=== PATIENT | female | born 1955 | race American Indian/Alaskan Native ===

== ENCOUNTER 2021-02-15 13:31 | Outpatient (CLI) | payer BC, MEDICARE ==
--- NOTE | 2021-02-15 16:06 | XRay Report ---
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 FINDINGS: BONES AND JOINTS: No suspicious lucent or lytic lesion. No other acute abnormality. Mild degenerative changes are present throughout the spine. SOFT TISSUES: No acute abnormality. ADDITIONAL FINDINGS: IMPRESSION: 1. No radiographic evidence of bone lesions concerning for malignancy. Signer Name: Rainer Meza MD Signed: 02/15/2021 4:02 PM Workstation Name: [id number]
== END 2021-02-15 13:32 | disposition home or self-care (01) ==
LOC: SPVIMAG 13:31
PROVIDERS: ATTEND Internal Medicine Hematology & Oncology
DX: M47.819 Spondylosis without myelopathy or radiculopathy, site unspecified (principal); D47.2 Monoclonal gammopathy
CPT/HCPCS: 77074